=== PATIENT | female | born 1985 | race Native Hawaiian/Other Pacific Islander ===

== ENCOUNTER → 2025-02-07 06:56 | Outpatient (CLI) | payer OTHER, SELFPAY ==
--- NOTE | 2025-02-07 07:00 | DI.US.S_ITS ---
PROCEDURE: US EXTREMITY NONVASC UPPER LT INDICATIONS: POSS CYST LT HAND TECHNIQUE: Real-time scanning was performed of the left wrist , with image documentation. COMPARISON: None. FINDINGS: Grayscale color Doppler images of the dorsal left wrist were acquired over the palpable area of concern. There is a 2.3 x 0.7 x 1.3 cm partially septated cyst at the area of palpable concern. There is no associated vascularity. No definite communication with the underlying joint space. IMPRESSION: 2.3 cm partially septated nonvascular cystic lesion over the dorsal aspect of the left wrist likely representing a ganglion cyst. If there are persistent clinical concerns, consider further evaluation with contrast enhanced MRI of the wrist. Dictated by: Jack Apple M.D. on 02/07/2025 at 9:45 Approved by: Jack Apple M.D. on 02/07/2025 at 10:21
--- NOTE | 2025-02-07 07:00 | DI.MRI.S_ITS ---
PROCEDURE: MR ANKLE LT WO CON INDICATIONS: ANKLE HEEL PAIN X3 MONTHS TECHNIQUE: Noncontrast sagittal T1 spin echo and T2 fast spin echo with fat saturation, axial proton density fast spin echo and T2 fast spin echo with fat saturation, coronal T1 spin echo and T2 fast spin echo with fat saturation through the ankle/hindfoot. COMPARISON: [facility], US, US EXTREMITY NONVASC UPPER LT, 02/07/2025, 7:04. FINDINGS: Image quality: Excellent. Bones: Mild marrow edema is present at the posterior-superior calcaneal tuberosity (04/24). The anterior process of the calcaneus and lateral process of the talus are intact. There is a 0.1 x 0.3 cm medial talar dome osteochondral defect without intervening fluid signal or a displaced fragment (05/29; 06/28; 04/18). Joints: There is no significant joint effusion. The tibiotalar and subtalar joints are preserved. 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 Mild pes planus alignment is present. Sinus tarsi: The sinus tarsi signal is normal. Syndesmotic ligaments: The anterior and posterior inferior syndesmotic ligaments are mildly thickened with low signal, but otherwise intact. Lateral collateral ligament: There is mild low signal thickening of the anterior talofibular ligament. The lateral collateral ligaments are otherwise normal. Deltoid ligament: The visualized components of the deltoid ligament, that being the posterior tibiotalar and tibiospring ligaments, are normal. Calcaneonavicular spring ligament: The superomedial component of the calcaneonavicular spring ligament is grossly intact. Tendons: There is mild intermediate signal and thickening of the distal pre insertional Achilles tendon up to 0.7 cm in the AP dimension (02/26; 6/15). The extensor, flexor and peroneal tendons are normal. The peroneal tendons are appropriately situated within the retromalleolar groove, and the superficial peroneal retinaculum is intact. Plantar aponeurosis: There is no abnormal thickening of, abnormal intrasubstance signal involving, or perifascial edema about the plantar aponeurosis. Plantar musculature: There are no findings of denervation involving the plantar muscles of the foot. Nerves: The visualized nerves are unremarkable. Other: There is a small amount of fluid in the retrocalcaneal bursa (/17) along with mild retro Achilles subcutaneous edema. Mildly convex contour of the retro malleolar groove (3/17). Nonspecific subcutaneous edema is present around the medial malleolus (7/22). IMPRESSION: 1. Mild Achilles tendinosis with associated retrocalcaneal bursitis, reactive perifascial edema, and reactive calcaneal marrow edema. 2. Medial talar dome 0.3 cm osteochondral defect without MR evidence of instability. 3. Chronic sprains of the syndesmotic ligaments. 4. Chronic sprain of the ATFL of the lateral collateral ligament complex. Dictated by: Hussein Lorenzana M.D. on 02/07/2025 at 15:51 Approved by: Hussein Lorenzana M.D. on 02/07/2025 at 16:01
== END ==
PROVIDERS: PCP Nurse Practitioner Family; Referring Provider Nurse Practitioner Family; Visit Provider Nurse Practitioner Family
DX: D48.5 Neoplasm of uncertain behavior of skin (principal); M76.62 Achilles tendinitis, left leg; S93.432A Sprain of tibiofibular ligament of left ankle, initial encounter; S93.492A Sprain of other ligament of left ankle, initial encounter; M21.962 Unspecified acquired deformity of left lower leg; M79.672 Pain in left foot
CPT/HCPCS: 73721; 76882

== ENCOUNTER → 2025-03-04 13:09 | Outpatient (CLI) | payer OTHER, SELFPAY ==
--- NOTE | 2025-03-04 | DI.MRI.S_ITS ---
PROCEDURE: MR WRIST LT WO/W CON INDICATIONS: Cyst TECHNIQUE: Noncontrast coronal proton density fast spin echo and T2 fast spin echo with fat saturation; coronal 3-D gradient echo, axial T1 spin echo and T2 fast spin echo with fat saturation, axial T1 spin echo with fat saturation, sagittal T1 spin echo through the wrist. Post-contrast axial, coronal, and sagittal T1 spin echo with fat saturation through the wrist. COMPARISON: None. FINDINGS: Image quality: Excellent. Bones and cartilage: No suspicious osseous enhancement. The carpal bones are normally aligned. No bone marrow contusions or fractures. No evidence for avascular necrosis. Mild wrist joint osteoarthritic changes are seen with joint space narrowing and subchondral sclerosis. Carpal ligaments: The scapholunate and lunotriquetral ligaments appear intact. In the absence of intra-articular contrast, the extrinsic carpal ligaments are not well identified. On sagittal images, the pisohamate ligament appears intact. Triangular fibrocartilage complex: Subtle signal abnormality involving triangular fibrocartilage near its ulnar insertion is seen. The adjacent meniscal homolog appears normal in the absence of intra-articular contrast. The extensor carpi ulnaris tendon is mildly thickened at the level of ulnar styloid. Tendons and soft tissues: Slightly lobulated cystic structure is noted over dorsal aspect of the wrist dorsal and medial to the extensor digitorum and indices tendons at the level of 3rd and 4th CMC joints and measures up to 1 x 0.8 x 2.1 cm in size . No contrast enhancement is noted within this structure. Similar cystic structure over volar aspect of the distal radius and radial styloid is seen measures up to 0.9 x 1 x 1 cm in size and show no contrast enhancement. The carpal tunnel structures appear normal, including the median nerve. The ulnar nerve appears normal within Guyon's canal. Small amount of fluid distending tendon sheath of extensor pollicis longus tendon over dorsal aspect of proximal carpal road is seen. Rest of the extensor and flexor tendons are intact. IMPRESSION: 1. 1 x 0.8 x 2.1 cm lobulated nonenhancing cystic structure involving soft tissue over dorsal aspect of wrist near 3rd and 4th CMC joints and is superficial to the extensor digitorum and indices tendons likely represent a ganglion cyst in this area possibly associated with 3rd and 4th CMC joints. 2. Smaller similar cystic structure involving volar aspect of distal radius and radial styloid measures 0.9 x 1 x 1 cm in size also likely represent a small ganglion cyst. 3. Mild wrist joint osteoarthritis. No marrow edema. No fracture or dislocation. No area of abnormal intraosseous enhancement. 4. Scapholunate and lunotriquetral ligaments are intact. 5. Finding is concerning for subtle TFC tear near its ulnar insertion. 6. Low-grade tendinosis involving extensor carpi ulnaris tendon at the level of ulnar styloid. Low-grade tenosynovitis involving extensor pollicis longus tendon over dorsal aspect of proximal carpal row. Dictated by: Clark Costello M.D. on 03/05/2025 at 14:22 Approved by: Clark Costello M.D. on 03/05/2025 at 14:30
== END ==
LOC: MRI 13:10
PROVIDERS: PCP Nurse Practitioner Family; Referring Provider Nurse Practitioner Family; Visit Provider Nurse Practitioner Family
DX: D48.5 Neoplasm of uncertain behavior of skin (principal); M19.032 Primary osteoarthritis, left wrist; M65.942 Unspecified synovitis and tenosynovitis, left hand
CPT/HCPCS: 73223; A9579

== ENCOUNTER → 2025-08-16 08:35 | Outpatient (CLI) | payer OTHER, SELFPAY ==
--- NOTE | 2025-08-16 08:36 | DI.MRI.S_ITS ---
PROCEDURE: MR KNEE LT WO CON INDICATIONS: PAIN TECHNIQUE: Noncontrast sagittal PD fast spin echo and T2 fast spin echo with fat saturation, sagittal 3-D FLASH with fat saturation; coronal T1 spin echo and PD fast spin echo with fat saturation, and axial PD fast spin echo with fat saturation through the knee. COMPARISON: None. FINDINGS: Image quality: Excellent. Menisci: Peripheral displacement of medial meniscus bowing medial collateral ligament. Complex oblique tear involving posterior horn of medial meniscus extending to both superior and inferior articulating surfaces. Oblique tear is also noted in anterior horn of lateral meniscus extending to inferior articulating surface. Cruciate ligaments: The anterior cruciate ligament is thickened with intrasubstance T2 hyperintense signal. The posterior cruciate ligament is intact. Medial structures: The medial collateral ligament appears thickened with surrounding edema. Visualized portions of the pes anserinus tendons appear normal. No abnormal bursal fluid. Lateral structures: The lateral collateral ligament, long and short heads of the biceps femoris tendon appear intact. The popliteus tendon appears intact. Iliotibial band appears normal. Anterior structures: Distal quadriceps tendinosis at its superior patellar insertion is seen. Distal patellar tendinosis at its anterior tibial insertion is also noted. Slight lateral subluxation of patella is seen. Low-grade sprain/partial-thickness tear involving medial patellofemoral ligament at its patellar insertion. Bones and cartilage: No bone marrow contusions or fractures. 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 Low-grade chondromalacia is also noted involving lateral facet of patella cartilage. Joint space: There is small knee joint fluid. There is a tiny Emerson's cyst. Normal appearing synovial plicae are incidentally noted. IMPRESSION: 1. Complex tear involving posterior horn of medial meniscus extending to both superior and inferior articulating surfaces. Subtle oblique tear involving anterior horn of lateral meniscus extending to inferior articulating surface. 2. Low-grade ACL sprain. No ACL rupture. The PCL is intact. 3. Low to moderate grade MCL sprain/partial-thickness tear. Low-grade sprain/partial-thickness tear involving medial patellofemoral ligament at its patellar insertion. Slight lateral subluxation of patella. 4. Distal quadriceps tendinosis and distal patellar tendinosis. 5. 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 Low-grade chondromalacia involving lateral facet of patella cartilage. 6. Small joint effusion and a tiny Emerson's cyst. No loose bodies. Dictated by: Clark Costello M.D. on 08/17/2025 at 9:15 Approved by: Clark Costello M.D. on 08/17/2025 at 9:18
== END ==
PROVIDERS: PCP Nurse Practitioner Family; Referring Provider Nurse Practitioner Family
DX: S83.232A Complex tear of medial meniscus, current injury, left knee, initial encounter (principal); S83.282A Other tear of lateral meniscus, current injury, left knee, initial encounter; S83.512A Sprain of anterior cruciate ligament of left knee, initial encounter; S83.412A Sprain of medial collateral ligament of left knee, initial encounter; S83.8X2A Sprain of other specified parts of left knee, initial encounter; M17.12 Unilateral primary osteoarthritis, left knee; M94.262 Chondromalacia, left knee; M25.462 Effusion, left knee; M25.562 Pain in left knee
CPT/HCPCS: 73721